=== PATIENT | male | born 1970 | race Caucasian/White ===

== ENCOUNTER 2018-08-19 09:52 | Emergency (ER) | payer OTHER ==
[~2018-08-19] VITALS: Ht 172.7 cm; Wt 108.9 kg
[2018-08-19 10:25] VITALS: BP 121/66
--- NOTE | 2018-08-19 10:33 | NUR ---
er md keyes and siobhan morfin made aware of patient condition. ice pack applied.
--- NOTE | 2018-08-19 10:33 | NUR ---
PT AMBULATES TO BED 11
--- NOTE | 2018-08-19 10:35 | NUR ---
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 Patient sts 1 story fall from ladder...landed on left hand and lower back. Patient reports of bl lower back pain. Patient denies any urinary/bowel incontience. Patient denies any loc, head, neck pain. Visual deformity to left wrist. Swelling noted to left hand. Cap refill < 3 seconds and pulsex +3 to left arm. Unable to move left wrist. RR EVEN AND UNLABORED, DENIES N/V/D. 10/10 PAIN IN L ARM THAT RADIATES THROUGHOUT ARM AND HAND. ER MD NOTIFIED. WILL CONTINUE TO MONITOR. SAFETY PRECAUTIONS IMPLEMENTED.
--- NOTE | 2018-08-19 10:37 | NUR ---
Patient being evaluated by physician at bedside.
[2018-08-19] MEDS ORDERED: ONDANSETRON 4 MG/2 ML VIAL IVP ONE (10:40)
[2018-08-19] MEDS ORDERED: MORPHINE SULFATE 4 MG/ML SYR IVP ONE (10:40)
[2018-08-19] MEDS ORDERED: KETOROLAC 30 MG/ML VIAL IVP ONE (10:40)
--- NOTE | 2018-08-19 11:33 | NUR ---
PT. LAYING IN BED , LEFT ARM SUPPORTED BY PILLOW. RR EVEN AND UNLABORED. VSS. WILL CONTINUE TO MONITOR.
[2018-08-19] MEDS ORDERED: PROPOFOL 200 MG/20 ML VIAL IV ONE (11:35)
--- NOTE | 2018-08-19 12:30 | NUR ---
PT. RESTING COMFORTABLY IN BED, RR EVEN AND UNLABORED. VSS. WILL CONTINUE TO MONITOR.
--- NOTE | 2018-08-19 12:55 | NUR ---
at bedside for conscious sedations with shelbie avina and byron at bedside at 1305 pt was given 100mg of 10 ml by shelbie avina hr 73 o2 sat on 4lnc 100% rr 18 bp 133\73 end tidal co2 40 was done at 1310 hr 76 rr 18, bp 133\72 o2 sat 100% end tidal co2 37mmg no signs of distress noted at this time
--- NOTE | 2018-08-19 13:12 | NUR ---
LT WRIST REDUCTION DONE BY DR. DUKE , PT. TOLERATED WELL. VSS. REFER TO MODERATE SEDATION RECORD.
--- NOTE | 2018-08-19 13:16 | NUR ---
XRAY AT BEDSIDE FOR POST-REDUCTION EXAM
[2018-08-19 14:40] VITALS: BP 130/88
--- NOTE | 2018-08-19 14:40 | NUR ---
Patient discharged with v/s stable. Written and verbal after care instructions given and explained. Patient alert, oriented and verbalized understanding of instructions. Ambulatory with steady gait. All questions addressed prior to discharge. ID band removed. Patient advised to follow up with PMD. Rx of NORCO 5/325, AND NAPROSYN 375 MG given. Patient educated on indication of medication including possible reaction and side effects. Opportunity to ask questions provided and answered.
== END 2018-08-19 14:40 | disposition home or self-care (01) ==
LOC: MED 09:52
DX: S52.572A Other intraarticular fracture of lower end of left radius, initial encounter for closed fracture (principal); F17.200 Nicotine dependence, unspecified, uncomplicated; W11.XXXA Fall on and from ladder, initial encounter; Y93.89 Activity, other specified; Y92.89 Other specified places as the place of occurrence of the external cause; Y99.8 Other external cause status
CPT/HCPCS: 25605; 73090; 73100; 73110; 96374; 96375; 99152; 99285; J1885; J2270; J2405; J2704; Q0092

== ENCOUNTER 2018-09-06 13:04 | Emergency (ER) | payer OTHER ==
[~2018-09-06] VITALS: Ht 172.7 cm; Wt 102.5 kg
--- NOTE | 2018-09-06 13:08 | NUR ---
Patient ambulated to bed 7. RN evaluating patient at bedside.
[2018-09-06 13:13] VITALS: BP 156/77
--- NOTE | 2018-09-06 13:16 | NUR ---
PT C/O DEC SENSATION AND PAIN IN L WRIST S/P SURGERY AND CAST AFTER A FRACTURE OF L WRIST FROM FALLING OFF OF LADDER. 07/21 PAIN. BRISK CAP REFILL, +SWELLING. NO OTHER COMPLAINTS, DENIES CP/SOB. HX: EPILEPSY MEDS: OXYCARBAZAPINE, IBUPROFEN, HYDROCODONE, KLONOPIN
--- NOTE | 2018-09-06 15:04 | NUR ---
biological science technician at bedside.
[2018-09-06 16:21] VITALS: BP 141/73
--- NOTE | 2018-09-06 16:22 | NUR ---
Patient discharged with v/s stable. Written and verbal after care instructions given and explained. Patient verbalized understanding. Ambulatory with steady gait. All questions addressed prior to discharge. Advised to follow up with PMD.
== END 2018-09-06 16:20 | disposition home or self-care (01) ==
LOC: MED 13:04
DX: M79.89 Other specified soft tissue disorders (principal); Z47.89 Encounter for other orthopedic aftercare
CPT/HCPCS: 73110; 99284

== ENCOUNTER 2023-10-26 12:55 | Emergency (ER) | payer OTHER ==
[~2023-10-26] VITALS: Ht 172.7 cm; Wt 112.9 kg
[2023-10-26 13:13] VITALS: BP 120/69; PULSE 84; RESP 18; TEMP 98.5; O2SAT 99
[2023-10-26] MEDS ORDERED: IBUP-2213 PO (14:11)
[2023-10-26] MEDS ORDERED: DICL100G32 TP (14:11)
[2023-10-26] MEDS ORDERED: CYCL-711 PO (14:11)
[2023-10-26] MEDS ORDERED: HYDROcodone/APAP 5/325 MG 1 TAB TAB PO ONE (14:20)
[2023-10-26 14:45] VITALS: O2SAT 99
== END 2023-10-26 14:40 | disposition home or self-care (01) ==
LOC: MED 12:55
DX: S16.1XXA Strain of muscle, fascia and tendon at neck level, initial encounter (principal); S20.212A Contusion of left front wall of thorax, initial encounter; S30.1XXA Contusion of abdominal wall, initial encounter; M50.30 Other cervical disc degeneration, unspecified cervical region; V49.88XA Car occupant (driver) (passenger) injured in other specified transport accidents, initial encounter; Y93.89 Activity, other specified; Y92.89 Other specified places as the place of occurrence of the external cause; Y99.8 Other external cause status
CPT/HCPCS: 71250; 72040; 99284